=== PATIENT | male | born 1955 | race Caucasian/White ===

== ENCOUNTER 2020-02-12 10:36 | Emergency (ER) | payer MEDICARE, SELFPAY ==
--- NOTE | ~2020-02-12 | XR_ITS ---
EXAMINATION: XR chest 1V portable EXAM DATE: 02/12/2020 11:13 INDICATION: cp, clamminess . TECHNIQUE: Portable AP frontal chest x-ray was obtained. There is no prior study for comparison. FINDINGS: Right midlung zone granuloma. The lungs are otherwise clear. There are no pleural effusion s. The cardiomediastinal silhouette is within normal limits. There is no pneumothorax suspected. T he bones and soft tissues are unremarkable. IMPRESSION: No acute cardiopulmonary findings. Reviewed, dictated and finalized at location B. NOLOGY MANAGER
--- NOTE | 2020-02-12 10:47 | ECG_ITS ---
Measurements Intervals Dent Rate: 56 P: 56 OK: 225 QRS: 21 QRSD: 92 T: 42 QT: 386 QTc: 375 Interpretive Statements SINUS BRADYCARDIA WITH FIRST DEGREE AV BLOCK EARLY PRECORDIAL R/S TRANSITION BASELINE ARTIFACT- I, II, AVR, AVF ABNORMAL ECG Electronically Signed On 02-12-2020 11:04:06 REWRITER by Bertram Jones D.O.
[2020-02-12 11:00] VITALS: BP 109/79; PULSE 70; RESP 19; TEMP 36.4; O2SAT 96
--- NOTE | 2020-02-12 11:14 | ED.CHESTPAIN ---
HPI - Chest Pain General Chief Complaint: Chest Pain Stated Complaint: Chest pains,Hot a clammy Source: patient and RN notes reviewed Mode of arrival: ambulatory Limitations: no limitations History of Present Illness MD complaint: chest pain Pertinent past history: coronary artery disease and COMMUNICATIONS TECHNOLOGIST Onset (ago): hour(s) (1) Timing of current episode: episodic and now resolved Prior episodes: No Onset: during exertion Pain location: substernal Pain radiation: left arm Pain scale (0-10): 7 Quality: aching Relieving factors: nothing Exacerbating factors: nothing Associated symptoms: nausea, diaphoresis and dyspnea Treatment prior to arrival: nitroglycerin Related Data Home Medications Medication Instructions Recorded Confirmed No Home Medications 02/12/20 02/12/20 Allergies Allergy/AdvReac Type Severity Reaction Status Date / Time No Known Allergies Allergy Unverified 03/17/17 07:49 Review of Systems Review of Systems: All systems reviewed & are unremarkable except as noted in HPI and below PMFSH Past Medical History Medical History (Updated 02/12/20 @ 16:01 by Paul Nguyen MD) Coronary artery disease Surgical History Surgical History (Updated 02/12/20 @ 16:01 by Paul Nguyen MD) H/O heart artery stent Family History Family History (Updated 10/18/13 @ 07:13 by DOCTOR UNKNOWN) Father Carcinoma of colon Mother Family history of malignant neoplasm of ovary Sibling Acute myocardial infarction Other Cerebrovascular accident Diabetes mellitus Hypertension Social History Social History (Updated 02/12/20 @ 16:05 by Paul Nguyen MD) Smoking status: Never smoker Alcohol intake: current Substance use: never Exam Const: General: healthy appearing, no acute distress and alert Nutritional Appearance: well nourished and obese centrally obese Orientation/consciousness: patient oriented x3 HENMT: Head: normal to inspection Ears: external ears normal General nose exam: Normal external nose present Mouth: Yes lip normal and Yes moist mucous membranes Eyes: Conjunctivae: conjunctivae normal Pupils: Equal, round and reactive pupils present EOM: EOMs intact bilaterally Neck: Neck: normal visual inspection Resp: Effort & Inspection: normal respiratory effort Auscultation: clear to auscultation bilaterally Cardio: Rate: regular rate Rhythm: regular rhythm GI: GI Palp: Yes Soft to palpation and No Tenderness to palpation present (GI) Auscultation: normal bowel sounds Back/Spine/Pelvis: Cervical Spine: cervical ROM normal Thoracic/Lumbar Spine: thoraco-lumbar ROM normal Skin: General skin exam: normal color Rashes: no rashes Neuro: General: patient oriented x3, moves all extremities, no meningeal signs and no focal motor deficits Speech: normal speech Gait exam (Neuro): Normal gait present Extrem: General: normal to inspection and no clubbing, cyanosis or edema Psych: Appearance: grossly normal and well kempt Mental Status: mental status grossly normal Affect: normal affect Attitude: cooperative Thought content: Yes Normal thought content present Course Course Emergency Course: patient's troponin quadrupled. Even though he is in the normal range I am concerned about patient needing a cardiac evaluation. I discussed the case with cell attendant at [facility]. He will be transferred there. He is given 4000 units of heparin IV push and put on heparin drip. Vital Signs Vital signs: Vital Signs Temperature 36.4 C 02/12/20 11:00 Pulse Rate 70 02/12/20 11:00 Respiratory Rate 19 02/12/20 11:00 Blood Pressure 109/79 02/12/20 11:00 Pulse Oximetry 96 02/12/20 11:00 Temperature 36.4 C 02/12/20 11:00 Pulse Rate 70 02/12/20 16:13 Respiratory Rate 14 02/12/20 16:13 Blood Pressure 146/84 H 02/12/20 16:13 Pulse Oximetry 96 02/12/20 16:13 Transfer Transfered to: [facility] ([place]) Transportation: [facility]
[2020-02-12 11:16] LABS: Basophils Absolute Auto 0.02 K/mm3 (0.00-0.10); Basophils Percent Auto 0.4 % (0.0-1.0); Eosinophils Absolute Auto 0.05 K/mm3 (0.02-0.50); Hematocrit 40.1 % (37.0-46.0); Hemoglobin 13.2 g/dL (12.4-15.3); Immature Granulocyte Absolute 0.02 K/mm3 (0.00-0.00); Immature Granulocyte Percent A 0.4 % (0.0-0.0); Lymphocytes Absolute Auto 1.43 K/mm3 (1.10-4.50); Lymphocytes Percent Auto 27.7 % (18.0-42.0); Mean Corpuscular HGB Conc 32.9 g/dL (32.0-36.0); Mean Corpuscular Hemoglobin 31.1 pg (27.0-31.0); Mean Corpuscular Volume 94.6 fL (78.0-102.0); Mean Platelet Volume 10.2 fl (8.7-11.0); Monocytes Absolute Auto 0.41 K/mm3 (0.10-0.90); Monocytes Percent Auto 7.9 % (2.0-11.0); Neutrophils Absolute Auto 3.2 K/mm3 (1.7-7.2); Neutrophils Percent Auto 62.6 % (50.0-70.0); Platelet Count Result 203 K/mm3 (150-420); Red Blood Count 4.24 M/mm3 (4.70-6.10); Red Cell Distribution Width 12.1 % (11.6-14.4); White Blood Count 5.2 K/mm3 (4.8-10.8)
[2020-02-12] MEDS: ASPIRIN 81 MG CHEWABLE TABLET 243 MG (11:23)
[2020-02-12 11:30] LABS: INR 0.9; Partial Thromboplastin Time 21.2 SEC (23.90-30.70); Prothrombin Time 10.5 Seconds (9.50-12.10)
[2020-02-12 11:33] LABS: Alanine Aminotransferase 50 U/L (16-63); Albumin Level 3.9 g/dL (3.4-5.0); Alkaline Phosphatase 122 U/L (46-116); Anion Gap 4 mmol/L (8-16); Aspartate Amino Transferase 28 U/L (15-37); BNP 14.2 pg/mL (0-100); Bilirubin,Total 1.9 mg/dL (0.00-1.00); Blood Urea Nitrogen 16 mg/dL (7-18); Calcium 9.1 mg/dL (8.5-10.1); Carbon Dioxide 30 mmol/L (21-32); Chloride 103 mmol/L (98-108); Estimated Glomerular Filt Rate > 60; Glucose 133 mg/dL (70-99); Osmolality Calculated 287 mOsm/kg (285-295); Potassium 4.1 mmol/L (3.5-5.1); Sodium 137 mmol/L (136-145); Total Protein 7.2 g/dL (6.4-8.2); Troponin I 5.9 ng/L (0.00-60.4)
[2020-02-12 11:35] LABS: CRP < 0.2 mg/dL (0.0-0.9)
[2020-02-12 13:00] VITALS: BP 132/82; PULSE 72; O2SAT 98
[2020-02-12 13:37] LABS: Troponin I 20.9 ng/L (0.00-60.4)
--- NOTE | 2020-02-12 14:17 | PC.NURSE ---
[facility] CALLED FOR POSSIBLE TRANSFER - DR JIMENEZ, CARDIOLOGY
[2020-02-12 14:18] VITALS: BP 145/87; PULSE 77; RESP 18; O2SAT 98
--- NOTE | 2020-02-12 14:39 | PC.NURSE ---
DR DASH CALLS BACK FOR CONSULT - WILL AWAIT BED ASSIGNMENT
[2020-02-12 15:17] VITALS: BP 149/88; PULSE 75; O2SAT 97
[2020-02-12] MEDS: HEPARIN SODIUM 5,000 UNITS/ML VIAL 4000 UNITS IV PUSH (15:25)
--- NOTE | 2020-02-12 16:06 | PC.NURSE ---
[facility] INFUSION STARTED - UNABLE TO CHART IN APR - VERIFIED WITH DR ELMORE - [facility] INFUSING TO [place] ON TRANSFER
[2020-02-12 16:13] VITALS: BP 146/84; PULSE 70; RESP 14; O2SAT 96
--- NOTE | 2020-02-12 16:47 | PC.NURSE ---
[facility] HERE FOR TRANSFER - PT CONDITION REMAINS THE SAME
== END 2020-02-12 16:52 | disposition short-term general hospital (02) ==
PROVIDERS: Emergency Provider Emergency Medicine
DX: I20.0 Unstable angina (principal)
CPT/HCPCS: 36415; 71045; 80053; 83735; 83880; 84484; 85025; 85610; 85730; 86140; 93005; 96374; 99285; A9270; J1644